=== PATIENT | female | born 1970 | race Hispanic/Latino ===

== ENCOUNTER 2021-09-30 21:17 | Emergency (ER) | payer SELFPAY ==
[~2021-09-30] VITALS: Ht 157.5 cm; Wt 76.2 kg
[2021-09-30] MEDS ORDERED: ACETAMINOPHEN 325 MG TAB PO STA (21:42)
[2021-09-30 21:56] LABS: BASOPHILS % 0.3 % (0.0-1.0); EOSINOPHILS % 0.3 % (0.0-6.0); HEMATOCRIT 31.4 % (34.2-44.1); HEMOGLOBIN 9.7 g/dL (12.0-16.0); LYMPHOCYTES # (AUTO) 0.3 (1.0-3.2); LYMPHOCYTES % 4.8 % (18.0-39.1); MEAN CORPUSCULAR HEMOGLOBIN 22.9 pg (28-32); MEAN CORPUSCULAR HGB CONC 30.9 g/dL (31-35); MEAN CORPUSCULAR VOLUME 74.2 fL (81-99); MONOCYTES # (AUTO) 0.1 (0.2-0.8); MONOCYTES % 1.8 % (4.4-11.3); NEUTROPHILS # (AUTO) 5.8 (2.1-6.9); NEUTROPHILS % 92.6 % (38.7-80.0); PLATELET COUNT 298 x10e3/uL (140-360); RED BLOOD COUNT 4.23 x10e6/uL (3.6-5.1); RED CELL DISTRIBUTION WIDTH 17.9 % (11.7-14.4)
[2021-09-30 22:12] LABS: B-TYPE NATRIURETIC PEPTIDE2 39.5 pg/mL (0-100)
[2021-09-30 22:13] LABS: ALANINE AMINOTRANSFERASE 12 IU/L (0-55); ALBUMIN 3.1 g/dL (3.5-5.0); ALBUMIN/GLOBULIN RATIO 0.8 (0.8-2.0); ALKALINE PHOSPHATASE 82 IU/L (40-150); BLOOD UREA NITROGEN 8 mg/dL (7-26); BUN/CREATININE RATIO 7 (6-25); CALCIUM 8.7 mg/dL (8.4-10.2); CARBON DIOXIDE 21 mmol/L (22-29); CHLORIDE 101 mmol/L (98-107); CREATINE KINASE 44 IU/L (29-168); CREATININE, SERUM 1.21 mg/dL (0.57-1.11); SODIUM 135 mmol/L (136-145)
[2021-09-30 22:15] LABS: GLUCOSE 682 mg/dL (74-118)
[2021-09-30] MEDS ORDERED: SODIUM CHLORIDE 0.9% 1000ML 1,000 ML IV STA (22:16)
[2021-09-30] MEDS ORDERED: INSULIN REGULAR, HUMAN 100 UNIT/1 ML IV STA (22:16)
[2021-09-30 23:00] LABS: CLARITY,URINE SL CLOUDY (CLEAR); COLOR,URINE YELLOW (YELLOW); KETONES,URINE TRACE (NEGATIVE); LEUKOCYTE ESTERASE ,URINE SMALL (NEGATIVE); NITRITE,URINE NEGATIVE (NEGATIVE); PROTEIN,URINE DIPSTICK TRACE (NEGATIVE); URINE UROBILINOGEN 0.2 mg/dL (0.2 - 1)
[2021-09-30 23:05] LABS: BACTERIA,URINE MODERATE /HPF; EPITHELIAL CELLS,URINE FEW /LPF; RBC,URINE 0-5 /HPF (0-5)
[2021-10-01] MEDS ORDERED: INSULIN REGULAR, HUMAN 100 UNIT/1 ML IV STA (01:02)
[2021-10-01] MEDS ORDERED: SODIUM CHLORIDE 0.9% 1000ML 1,000 ML IV STA (01:02)
[2021-10-01] MEDS ORDERED: AUGMENTIN 500-1 EACH PO (03:18)
[2021-10-01 04:20] VITALS: BP 108/63
== END 2021-10-01 03:24 | disposition home or self-care (01) ==
LOC: ER 21:21
DX: A41.9 Sepsis, unspecified organism (principal); R73.9 Hyperglycemia, unspecified; N39.0 Urinary tract infection, site not specified; Z88.6 Allergy status to analgesic agent
CPT/HCPCS: 36415; 71045; 80053; 81001; 82550; 82553; 82948; 83605; 83880; 84484; 85025; 87040; 87071; 87205; 99284; J2543; J7030 ×2; U0002; 93005

== ENCOUNTER 2021-10-21 17:43 | Inpatient (IN) | payer SELFPAY ==
[~2021-10-21] VITALS: Ht 160 cm; Wt 56.3 kg
[~2021-10-21 17:43] MED LIST: AUGMENTIN 500-1 EACH PO
[2021-10-21] MEDS ORDERED: SODIUM CHLORIDE 0.9% 1000ML 1,000 ML IV STA (17:46)
[2021-10-21] MEDS ORDERED: FAMOTIDINE 20 MG/2 ML VIAL IV STA (17:57)
[2021-10-21] MEDS ORDERED: LACTATED RINGER'S 1,000 ML INJ ONE (18:00)
[2021-10-21 18:26] LABS: BASOPHILS % 0.3 % (0.0-1.0); HEMATOCRIT 37.7 % (34.2-44.1); HEMOGLOBIN 11.5 g/dL (12.0-16.0); LYMPHOCYTES % 6.8 % (18.0-39.1); MEAN CORPUSCULAR HEMOGLOBIN 23.3 pg (28-32); MEAN CORPUSCULAR HGB CONC 30.5 g/dL (31-35); MEAN CORPUSCULAR VOLUME 76.5 fL (81-99); MONOCYTES # (AUTO) 0.6 (0.2-0.8); MONOCYTES % 3.8 % (4.4-11.3); NEUTROPHILS # (AUTO) 13.2 (2.1-6.9); NEUTROPHILS % 88.6 % (38.7-80.0); PLATELET COUNT 370 x10e3/uL (140-360); RED BLOOD COUNT 4.93 x10e6/uL (3.6-5.1); RED CELL DISTRIBUTION WIDTH 18.5 % (11.7-14.4)
[2021-10-21 18:40] LABS: ALBUMIN 3.1 g/dL (3.5-5.0); ALBUMIN/GLOBULIN RATIO 0.5 (0.8-2.0); ANION GAP 26.3 mmol/L (8-16); CALCIUM 9.7 mg/dL (8.4-10.2); CREATININE, SERUM 1.24 mg/dL (0.57-1.11); POTASSIUM 4.3 mmol/L (3.5-5.1)
[2021-10-21] MEDS: ONDANSETRON HCL INJ 2MG/ML 2ML 2 MG/ML VIAL IV PRN (18:49)
[2021-10-21] MEDS: DEXTROSE 5%/0.45% SOD CHL 1,000 ML IV SCH (19:00)
[2021-10-21] MEDS ORDERED: INSULIN REGULAR, HUMAN 100 UNIT/1 ML IV ONE (19:00)
[2021-10-21] MEDS ORDERED: POTASSIUM CHLORIDE 20MEQ/100ML 200 ML IV PRN (19:00)
[2021-10-21] MEDS ORDERED: INSULIN REGULAR, HUMAN 3ML VL 100 UNIT in SODIUM CHLORIDE 0.9% 100 ML IV SCH ×2 (19:00)
[2021-10-21] MEDS ORDERED: MAGNESIUM SULF 1GRAM/DEXTROSE 100 ML IV PRN (19:00)
[2021-10-21 19:03] LABS: CLARITY,URINE HAZY (CLEAR); COLOR,URINE YELLOW (YELLOW); LEUKOCYTE ESTERASE ,URINE NEGATIVE (NEGATIVE); NITRITE,URINE POSITIVE (NEGATIVE)
[2021-10-21 19:04] LABS: KETONES,URINE >=160 (NEGATIVE); PROTEIN,URINE DIPSTICK >=300 (NEGATIVE); URINE UROBILINOGEN 0.2 mg/dL (0.2 - 1)
[2021-10-21 19:06] LABS: WBC,URINE (MAN) >50 /HPF (0-5)
[2021-10-21 19:07] LABS: AMORPHOUS SEDIMENT,URINE FEW (FEW); BACTERIA,URINE MANY /HPF; EPITHELIAL CELLS,URINE FEW /LPF; MUCUS,URINE MODERATE (RARE)
[2021-10-21] MEDS ORDERED: Morphine 2mg Syringe 2 MG/ML SYR IV PRN (19:15)
[2021-10-21] MEDS ORDERED: ONDANSETRON HCL INJ 2MG/ML 2ML 2 MG/ML VIAL IV PRN (19:15)
[2021-10-21 19:16] LABS: ABG HCO3 17 mmol/L (22-26); ABG PCO2 28 mmHg (35-45); ABG PH 7.39 (7.35-7.45); ABG PO2 91 mmHg (80-105); ABG TCO2 18
[2021-10-21] MEDS ORDERED: HYDRALAZINE HCL 20 MG/ML VIAL IV PRN (20:00)
[2021-10-21] MEDS: SODIUM CHLORIDE 0.9% 1000ML 1,000 ML IV SCH ×2 (20:45→23:00)
[2021-10-21] MEDS: ACETAMINOPHEN 325 MG TAB PO PRN (20:45)
[2021-10-21 21:07] LABS: CALCIUM 8.6 mg/dL (8.4-10.2); CREATININE, SERUM 1.04 mg/dL (0.57-1.11); MAGNESIUM 1.6 MG/DL (1.3-2.1)
[2021-10-21 22:15] VITALS: BP 101/56
[2021-10-21 22:30] VITALS: BP 101/56
[2021-10-21 23:00] VITALS: BP 91/52
[2021-10-21 23:29] VITALS: BP 91/52
[2021-10-21 23:31] LABS: ANION GAP 16.2 mmol/L (8-16); CALCIUM 8.4 mg/dL (8.4-10.2); CREATININE, SERUM 1.03 mg/dL (0.57-1.11); MAGNESIUM 1.9 MG/DL (1.3-2.1); POTASSIUM 3.2 mmol/L (3.5-5.1)
[2021-10-22] VITALS (25 sets, daily range): BP systolic 94–180; BP diastolic 55–139
[2021-10-22] MEDS: DEXTROSE 5%/0.45% SOD CHL 1,000 ML IV SCH (01:13)
[2021-10-22] MEDS: SODIUM CHLORIDE 0.9% 1000ML 1,000 ML IV SCH ×2 (03:00→05:31)
[2021-10-22 04:04] LABS: BASOPHILS % 0.1 % (0.0-1.0); HEMATOCRIT 29.3 % (34.2-44.1); HEMOGLOBIN 9.1 g/dL (12.0-16.0); LYMPHOCYTES # (AUTO) 1.6 (1.0-3.2); LYMPHOCYTES % 11.1 % (18.0-39.1); MEAN CORPUSCULAR HEMOGLOBIN 23.6 pg (28-32); MEAN CORPUSCULAR HGB CONC 31.1 g/dL (31-35); MEAN CORPUSCULAR VOLUME 75.9 fL (81-99); MONOCYTES # (AUTO) 1.3 (0.2-0.8); MONOCYTES % 9.1 % (4.4-11.3); NEUTROPHILS # (AUTO) 11.4 (2.1-6.9); NEUTROPHILS % 79.4 % (38.7-80.0); PLATELET COUNT 280 x10e3/uL (140-360); RED BLOOD COUNT 3.86 x10e6/uL (3.6-5.1); RED CELL DISTRIBUTION WIDTH 18.6 % (11.7-14.4)
[2021-10-22 04:23] LABS: ANION GAP 11.9 mmol/L (8-16); CALCIUM 8.4 mg/dL (8.4-10.2); CREATININE, SERUM 0.83 mg/dL (0.57-1.11); MAGNESIUM 1.6 MG/DL (1.3-2.1)
[2021-10-22 04:26] LABS: POTASSIUM 2.9 mmol/L (3.5-5.1)
[2021-10-22] MEDS ORDERED: POTASSIUM CHLORIDE 20MEQ/100ML 200 ML ONE (04:42)
[2021-10-22] MEDS ORDERED: DEXTROSE 50% SYRINGE 50 ML IV PRN (05:45)
[2021-10-22] MEDS ORDERED: CALCIUM CARBONATE 500 MG CHEWABLE TABS PO PRN (07:00)
[2021-10-22] MEDS: INSULIN REGULAR, HUMAN 100 UNIT/1 ML SQ SCH ×4 (07:26→21:02)
[2021-10-22] MEDS: ONDANSETRON HCL INJ 2MG/ML 2ML 2 MG/ML VIAL IV PRN ×2 (08:27→20:41)
[2021-10-22] MEDS: ACETAMINOPHEN 325 MG TAB PO PRN ×2 (08:35→22:03)
[2021-10-22 12:19] LABS: ANION GAP 16.2 mmol/L (8-16); CALCIUM 8.2 mg/dL (8.4-10.2); CREATININE, SERUM 0.77 mg/dL (0.57-1.11); MAGNESIUM 1.5 MG/DL (1.3-2.1); POTASSIUM 4.2 mmol/L (3.5-5.1)
[2021-10-22 15:59] LABS: CALCIUM 8.1 mg/dL (8.4-10.2); CREATININE, SERUM 0.83 mg/dL (0.57-1.11); MAGNESIUM 1.5 MG/DL (1.3-2.1)
[2021-10-22 19:25] LABS: CALCIUM 8.1 mg/dL (8.4-10.2); CREATININE, SERUM 0.84 mg/dL (0.57-1.11); MAGNESIUM 1.7 MG/DL (1.3-2.1)
[2021-10-23] VITALS (14 sets, daily range): BP systolic 104–148; BP diastolic 59–83
[2021-10-23] MEDS: SODIUM CHLORIDE 0.9% 1000ML 1,000 ML IV SCH ×2 (00:23→14:31)
[2021-10-23] MEDS: INSULIN REGULAR, HUMAN 100 UNIT/1 ML SQ SCH ×4 (07:48→21:00)
[2021-10-23 13:20] LABS: BASOPHILS % 0.4 % (0.0-1.0); EOSINOPHILS % 0.1 % (0.0-6.0); HEMATOCRIT 32.6 % (34.2-44.1); HEMOGLOBIN 9.9 g/dL (12.0-16.0); LYMPHOCYTES % 9.2 % (18.0-39.1); MEAN CORPUSCULAR HEMOGLOBIN 23.3 pg (28-32); MEAN CORPUSCULAR HGB CONC 30.4 g/dL (31-35); MEAN CORPUSCULAR VOLUME 76.7 fL (81-99); MONOCYTES # (AUTO) 0.7 (0.2-0.8); MONOCYTES % 6.2 % (4.4-11.3); NEUTROPHILS % 83.5 % (38.7-80.0); PLATELET COUNT 232 x10e3/uL (140-360); RED BLOOD COUNT 4.25 x10e6/uL (3.6-5.1); RED CELL DISTRIBUTION WIDTH 18.8 % (11.7-14.4)
[2021-10-23 13:41] LABS: ANION GAP 15.3 mmol/L (8-16); CALCIUM 8.2 mg/dL (8.4-10.2); CREATININE, SERUM 0.78 mg/dL (0.57-1.11); POTASSIUM 3.3 mmol/L (3.5-5.1)
[2021-10-23] MEDS: ONDANSETRON HCL INJ 2MG/ML 2ML 2 MG/ML VIAL IV PRN (14:31)
[2021-10-23] MEDS: HEPARIN SOD (PORCINE) 5,000 UNIT/ML VIAL SC SCH (21:00)
[2021-10-24] VITALS (9 sets, daily range): BP systolic 121–161; BP diastolic 66–86
[2021-10-24] MEDS: SODIUM CHLORIDE 0.9% 1000ML 1,000 ML IV SCH ×2 (00:52→09:01)
[2021-10-24] MEDS: BENZONATATE 100 MG CAP PO PRN ×2 (00:52→21:08)
[2021-10-24] MEDS: INSULIN REGULAR, HUMAN 100 UNIT/1 ML SQ SCH ×4 (07:30→20:58)
[2021-10-24] MEDS: HEPARIN SOD (PORCINE) 5,000 UNIT/ML VIAL SC SCH ×2 (08:52→20:57)
[2021-10-25] VITALS: BP 132/70
[2021-10-25] MEDS: SODIUM CHLORIDE 0.9% 1000ML 1,000 ML IV SCH (02:31)
[2021-10-25 04:15] VITALS: BP 131/71
[2021-10-25 05:35] LABS: BASOPHILS % 0.1 % (0.0-1.0); EOSINOPHILS # (AUTO) 0.1 (0.0-0.4); EOSINOPHILS % 1.4 % (0.0-6.0); HEMATOCRIT 28.4 % (34.2-44.1); HEMOGLOBIN 8.6 g/dL (12.0-16.0); LYMPHOCYTES # (AUTO) 1.7 (1.0-3.2); LYMPHOCYTES % 23.9 % (18.0-39.1); MEAN CORPUSCULAR HEMOGLOBIN 23.2 pg (28-32); MEAN CORPUSCULAR HGB CONC 30.3 g/dL (31-35); MEAN CORPUSCULAR VOLUME 76.5 fL (81-99); MONOCYTES # (AUTO) 0.8 (0.2-0.8); MONOCYTES % 11.4 % (4.4-11.3); NEUTROPHILS # (AUTO) 4.5 (2.1-6.9); NEUTROPHILS % 62.8 % (38.7-80.0); PLATELET COUNT 232 x10e3/uL (140-360); RED BLOOD COUNT 3.71 x10e6/uL (3.6-5.1); RED CELL DISTRIBUTION WIDTH 18.5 % (11.7-14.4)
[2021-10-25 05:53] LABS: ANION GAP 17.2 mmol/L (8-16); BLOOD UREA NITROGEN < 5 mg/dL (7-26); CALCIUM 8.2 mg/dL (8.4-10.2); CARBON DIOXIDE 22 mmol/L (22-29); CHLORIDE 104 mmol/L (98-107); GLUCOSE 268 mg/dL (74-118); POTASSIUM 3.2 mmol/L (3.5-5.1); SODIUM 140 mmol/L (136-145)
[2021-10-25 05:54] LABS: BUN/CREATININE RATIO 7 (6-25)
[2021-10-25 08:14] VITALS: BP 142/75
[2021-10-25] MEDS: INSULIN REGULAR, HUMAN 100 UNIT/1 ML SQ SCH ×2 (09:03→11:46)
[2021-10-25] MEDS: HEPARIN SOD (PORCINE) 5,000 UNIT/ML VIAL SC SCH (09:03)
[2021-10-25] MEDS ORDERED: ONDANSETRON HCL 4 MG ORAL DISINTEGRATING TAB PO PRN (09:30)
[2021-10-25] MEDS ORDERED: CIPRO500 MG PO ×2 (10:23→15:53)
[2021-10-25] MEDS ORDERED: METFORMIN HCL850 MG PO ×2 (10:23→15:53)
[2021-10-25 11:58] VITALS: BP 140/79
[2021-10-25 16:27] VITALS: BP 146/94
[2021-10-26] MEDS ORDERED: PANTOPRAZOLE SOD 40 MG TABEC PO SCH (07:30)
== END 2021-10-25 17:57 | disposition home or self-care (01) | DRG 871 ==
LOC: ER 17:47 → ERHOLD 19:31 → ICU 22:02 → MED/SURG2 10-23 23:51
PROVIDERS: ADMIT Internal Medicine; ATTEND Internal Medicine
DX: A41.51 Sepsis due to Escherichia coli [E. coli] (principal); E11.10 Type 2 diabetes mellitus with ketoacidosis without coma; N39.0 Urinary tract infection, site not specified; Z16.12 Extended spectrum beta lactamase (ESBL) resistance; E87.6 Hypokalemia; R05.9 Cough, unspecified; B96.81 Helicobacter pylori [H. pylori] as the cause of diseases classified elsewhere; Z90.49 Acquired absence of other specified parts of digestive tract; Z83.3 Family history of diabetes mellitus; Z82.49 Family history of ischemic heart disease and other diseases of the circulatory system; Z20.822 Contact with and (suspected) exposure to COVID-19; Z79.84 Long term (current) use of oral hypoglycemic drugs
CPT/HCPCS: 36415; 36600; 71045; 74018; 80048; 80053; 81001; 82805; 82948; 83605; 83690; 83735; 84702; 85025; 87040; 87071; 87086; 87186; 87205; 93005; 94799; 96361; 96372; 99284; J0696; J1644; J1817; J2405; J2543; J3480; J7030; J7050; J7121

== ENCOUNTER 2021-12-01 17:38 | Inpatient (IN) | payer SELFPAY ==
[~2021-12-01] VITALS: Ht 160 cm; Wt 56.2 kg
[~2021-12-01 17:38] MED LIST changes: +CIPRO500 MG PO; +METFORMIN HCL850 MG PO
[2021-12-01] MEDS ORDERED: ONDANSETRON HCL INJ 2MG/ML 2ML 2 MG/ML VIAL IV STA (17:50)
[2021-12-01] MEDS ORDERED: SODIUM CHLORIDE 0.9% 1000ML 1,000 ML IV ONE (18:00)
[2021-12-01 18:07] LABS: BASOPHILS % 0.2 % (0.0-1.0); EOSINOPHILS # (AUTO) 0.1 (0.0-0.4); EOSINOPHILS % 0.7 % (0.0-6.0); HEMATOCRIT 34.1 % (34.2-44.1); HEMOGLOBIN 10.6 g/dL (12.0-16.0); LYMPHOCYTES # (AUTO) 1.1 (1.0-3.2); LYMPHOCYTES % 8.3 % (18.0-39.1); MEAN CORPUSCULAR HEMOGLOBIN 24.1 pg (28-32); MEAN CORPUSCULAR HGB CONC 31.1 g/dL (31-35); MEAN CORPUSCULAR VOLUME 77.5 fL (81-99); MONOCYTES # (AUTO) 0.5 (0.2-0.8); NEUTROPHILS # (AUTO) 11.3 (2.1-6.9); NEUTROPHILS % 86.4 % (38.7-80.0); PLATELET COUNT 590 x10e3/uL (140-360)
[2021-12-01 18:26] LABS: ALBUMIN 2.9 g/dL (3.5-5.0); ALBUMIN/GLOBULIN RATIO 0.6 (0.8-2.0); ALKALINE PHOSPHATASE 122 IU/L (40-150); ANION GAP 20.2 mmol/L (8-16); BLOOD UREA NITROGEN 5 mg/dL (7-26); BUN/CREATININE RATIO 4 (6-25); CALCIUM 9.3 mg/dL (8.4-10.2); CARBON DIOXIDE 27 mmol/L (22-29); CHLORIDE 87 mmol/L (98-107); CREATINE KINASE 15 IU/L (29-168); CREATININE, SERUM 1.22 mg/dL (0.57-1.11); POTASSIUM 4.2 mmol/L (3.5-5.1); SODIUM 130 mmol/L (136-145)
[2021-12-01 18:32] LABS: ALANINE AMINOTRANSFERASE < 6 IU/L (0-55); GLUCOSE 647 mg/dL (74-118)
[2021-12-01] MEDS ORDERED: INSULIN REGULAR, HUMAN 100 UNIT/1 ML SQ ONE ×2 (18:45)
[2021-12-01 19:41] LABS: CLARITY,URINE HAZY (CLEAR); COLOR,URINE YELLOW (YELLOW); KETONES,URINE TRACE (NEGATIVE); LEUKOCYTE ESTERASE ,URINE SMALL (NEGATIVE); NITRITE,URINE NEGATIVE (NEGATIVE); PROTEIN,URINE DIPSTICK 1+ (NEGATIVE); URINE UROBILINOGEN 0.2 mg/dL (0.2 - 1)
[2021-12-01 19:48] LABS: BACTERIA,URINE MANY /HPF; EPITHELIAL CELLS,URINE MODERATE /LPF; WBC,URINE (MAN) 21-50 /HPF (0-5)
[2021-12-01] MEDS ORDERED: ONDANSETRON HCL INJ 2MG/ML 2ML 2 MG/ML VIAL IV PRN (20:15)
[2021-12-01] MEDS ORDERED: DEXTROSE 50% SYRINGE 50 ML IV PRN (20:15)
[2021-12-01] MEDS: SODIUM CHLORIDE 0.9% 1000ML 1,000 ML IV SCH (20:45)
[2021-12-01] MEDS ORDERED: ACETAMINOPHEN 325 MG TAB PO PRN (20:45)
[2021-12-01 22:20] VITALS: BP 129/78
[2021-12-01] MEDS: INSULIN REGULAR, HUMAN 100 UNIT/1 ML SQ SCH (22:48)
[2021-12-01 23:15] VITALS: BP 129/78
[2021-12-01 23:33] VITALS: BP 129/78
[2021-12-02] VITALS (8 sets, daily range): BP systolic 109–138; BP diastolic 62–80
[2021-12-02] MEDS: SODIUM CHLORIDE 0.9% 1000ML 1,000 ML IV SCH ×3 (05:25→20:14)
[2021-12-02 06:32] LABS: BASOPHILS % 0.2 % (0.0-1.0); EOSINOPHILS # (AUTO) 0.1 (0.0-0.4); EOSINOPHILS % 0.8 % (0.0-6.0); HEMATOCRIT 29.5 % (34.2-44.1); LYMPHOCYTES # (AUTO) 2.1 (1.0-3.2); LYMPHOCYTES % 15.1 % (18.0-39.1); MEAN CORPUSCULAR HGB CONC 30.5 g/dL (31-35); MEAN CORPUSCULAR VOLUME 78.7 fL (81-99); MONOCYTES # (AUTO) 0.9 (0.2-0.8); MONOCYTES % 6.5 % (4.4-11.3); NEUTROPHILS # (AUTO) 10.8 (2.1-6.9); PLATELET COUNT 532 x10e3/uL (140-360); RED BLOOD COUNT 3.75 x10e6/uL (3.6-5.1); RED CELL DISTRIBUTION WIDTH 16.3 % (11.7-14.4)
[2021-12-02 06:58] LABS: ALBUMIN 2.3 g/dL (3.5-5.0); ALBUMIN/GLOBULIN RATIO 0.5 (0.8-2.0); ALKALINE PHOSPHATASE 95 IU/L (40-150); ANION GAP 14.3 mmol/L (8-16); BLOOD UREA NITROGEN < 5 mg/dL (7-26); CALCIUM 8.3 mg/dL (8.4-10.2); CARBON DIOXIDE 27 mmol/L (22-29); CHLORIDE 99 mmol/L (98-107); CREATINE KINASE 11 IU/L (29-168); CREATININE, SERUM 0.79 mg/dL (0.57-1.11); GLUCOSE 94 mg/dL (74-118); POTASSIUM 3.3 mmol/L (3.5-5.1); SODIUM 137 mmol/L (136-145)
[2021-12-02 07:00] LABS: ALANINE AMINOTRANSFERASE < 6 IU/L (0-55); BUN/CREATININE RATIO 6 (6-25)
[2021-12-02] MEDS: INSULIN REGULAR, HUMAN 100 UNIT/1 ML SQ SCH ×4 (07:30→20:16)
[2021-12-02 07:45] LABS: CHOL/HDL RATIO 3.7 (3.0-3.6)
[2021-12-02] MEDS: METFORMIN HCL 850 MG TAB PO SCH ×2 (09:20→17:18)
[2021-12-02 14:54] LABS: ANION GAP 13.6 mmol/L (8-16); BLOOD UREA NITROGEN < 5 mg/dL (7-26); CALCIUM 8.3 mg/dL (8.4-10.2); CARBON DIOXIDE 24 mmol/L (22-29); CHLORIDE 102 mmol/L (98-107); CREATININE, SERUM 0.82 mg/dL (0.57-1.11); GLUCOSE 187 mg/dL (74-118); MAGNESIUM 1.6 MG/DL (1.3-2.1); PHOSPHORUS 2.9 MG/DL (2.3-4.7); POTASSIUM 3.6 mmol/L (3.5-5.1); SODIUM 136 mmol/L (136-145)
[2021-12-02 14:56] LABS: BUN/CREATININE RATIO 6 (6-25)
[2021-12-02 15:18] LABS: CREATINE KINASE 10 IU/L (29-168)
[2021-12-02] MEDS: ATORVASTATIN 20 MG TAB PO SCH (20:14)
[2021-12-02 22:27] LABS: CREATINE KINASE 13 IU/L (29-168)
[2021-12-03] VITALS (8 sets, daily range): BP systolic 125–148; BP diastolic 67–82
[2021-12-03] MEDS: SODIUM CHLORIDE 0.9% 1000ML 1,000 ML IV SCH ×3 (04:15→22:33)
[2021-12-03] MEDS: METFORMIN HCL 850 MG TAB PO SCH ×2 (08:50→16:32)
[2021-12-03] MEDS: INSULIN REGULAR, HUMAN 100 UNIT/1 ML SQ SCH ×4 (08:54→21:00)
[2021-12-03 12:21] LABS: BASOPHILS % 0.2 % (0.0-1.0); EOSINOPHILS # (AUTO) 0.1 (0.0-0.4); EOSINOPHILS % 1.1 % (0.0-6.0); HEMATOCRIT 28.9 % (34.2-44.1); HEMOGLOBIN 8.8 g/dL (12.0-16.0); LYMPHOCYTES # (AUTO) 1.7 (1.0-3.2); LYMPHOCYTES % 16.6 % (18.0-39.1); MEAN CORPUSCULAR HEMOGLOBIN 24.2 pg (28-32); MEAN CORPUSCULAR HGB CONC 30.4 g/dL (31-35); MEAN CORPUSCULAR VOLUME 79.6 fL (81-99); MONOCYTES # (AUTO) 0.6 (0.2-0.8); MONOCYTES % 6.2 % (4.4-11.3); NEUTROPHILS # (AUTO) 7.9 (2.1-6.9); NEUTROPHILS % 75.5 % (38.7-80.0); PLATELET COUNT 471 x10e3/uL (140-360); RED BLOOD COUNT 3.63 x10e6/uL (3.6-5.1); RED CELL DISTRIBUTION WIDTH 16.8 % (11.7-14.4)
[2021-12-03 12:40] LABS: ANION GAP 13.8 mmol/L (8-16); CALCIUM 8.4 mg/dL (8.4-10.2); CREATININE, SERUM 0.72 mg/dL (0.57-1.11); POTASSIUM 3.8 mmol/L (3.5-5.1)
[2021-12-03] MEDS: ATORVASTATIN 20 MG TAB PO SCH (20:16)
[2021-12-04] VITALS: BP 146/84
[2021-12-04 04:00] VITALS: BP 143/87
[2021-12-04] MEDS: INSULIN REGULAR, HUMAN 100 UNIT/1 ML SQ SCH (07:30)
[2021-12-04] MEDS ORDERED: CEPHALEXIN500 MG PO (07:36)
[2021-12-04] MEDS ORDERED: PANTOPRAZOLE SO40 MG PO (07:36)
[2021-12-04] MEDS ORDERED: LIPITOR20 MG PO (07:36)
[2021-12-04] MEDS: METFORMIN HCL 850 MG TAB PO SCH (08:22)
[2021-12-04 08:44] VITALS: BP 143/87
== END 2021-12-04 10:52 | disposition home or self-care (01) | DRG 638 ==
LOC: ER 17:52 → ERHOLD 20:08 → MED/SURG2 22:38 → OBSVTOIN 12-03 10:19
PROVIDERS: ADMIT Internal Medicine; ATTEND Internal Medicine
DX: E11.65 Type 2 diabetes mellitus with hyperglycemia (principal); N17.9 Acute kidney failure, unspecified; N39.0 Urinary tract infection, site not specified; Z16.12 Extended spectrum beta lactamase (ESBL) resistance; E87.6 Hypokalemia; Z90.49 Acquired absence of other specified parts of digestive tract; Z88.8 Allergy status to other drugs, medicaments and biological substances; B96.20 Unspecified Escherichia coli [E. coli] as the cause of diseases classified elsewhere; Z20.822 Contact with and (suspected) exposure to COVID-19; Z79.84 Long term (current) use of oral hypoglycemic drugs
CPT/HCPCS: 0223U; 36415; 71045; 80048; 80053; 80061; 81001; 82550; 82553; 82948; 83036; 83605; 83690; 83735; 84100; 84484; 85025; 87040; 87086; 87186; 87400; 93005; 94799; 99284; G0378; J0696; J1817; J2405; J7030

== ENCOUNTER 2021-12-27 17:36 | Inpatient (IN) | payer SELFPAY ==
[~2021-12-27] VITALS: Ht 160 cm; Wt 52.4 kg
[~2021-12-27 17:36] MED LIST changes: +CEPHALEXIN500 MG PO; +LIPITOR20 MG PO; +PANTOPRAZOLE SO40 MG PO
[2021-12-27] MEDS ORDERED: INSULIN REGULAR, HUMAN 100 UNIT/1 ML SQ ONE (18:00)
[2021-12-27] MEDS ORDERED: INSULIN REGULAR, HUMAN 100 UNIT/1 ML IV ONE (18:00)
[2021-12-27] MEDS ORDERED: SODIUM CHLORIDE 0.9% 1000ML 1,000 ML IV ONE (18:00)
[2021-12-27] MEDS ORDERED: SODIUM CHLORIDE 0.9% 1000ML 1,000 ML ONE (18:01)
[2021-12-27 18:09] LABS: BASOPHILS % 0.2 % (0.0-1.0); EOSINOPHILS % 0.1 % (0.0-6.0); HEMATOCRIT 30.3 % (34.2-44.1); LYMPHOCYTES # (AUTO) 0.9 (1.0-3.2); LYMPHOCYTES % 6.1 % (18.0-39.1); MEAN CORPUSCULAR HEMOGLOBIN 24.7 pg (28-32); MEAN CORPUSCULAR HGB CONC 29.7 g/dL (31-35); MEAN CORPUSCULAR VOLUME 83.2 fL (81-99); MONOCYTES # (AUTO) 0.7 (0.2-0.8); MONOCYTES % 5.2 % (4.4-11.3); NEUTROPHILS # (AUTO) 12.6 (2.1-6.9); NEUTROPHILS % 87.8 % (38.7-80.0); PLATELET COUNT 501 x10e3/uL (140-360); RED BLOOD COUNT 3.64 x10e6/uL (3.6-5.1); RED CELL DISTRIBUTION WIDTH 16.2 % (11.7-14.4)
[2021-12-27 18:37] LABS: ALANINE AMINOTRANSFERASE 6 IU/L (0-55); ALBUMIN 2.2 g/dL (3.5-5.0); ALBUMIN/GLOBULIN RATIO 0.4 (0.8-2.0); ALKALINE PHOSPHATASE 120 IU/L (40-150); ANION GAP 30.2 mmol/L (8-16); BLOOD UREA NITROGEN 24 mg/dL (7-26); BUN/CREATININE RATIO 17 (6-25); CALCIUM 7.7 mg/dL (8.4-10.2); CHLORIDE 104 mmol/L (98-107); CREATINE KINASE 11 IU/L (29-168); CREATININE, SERUM 1.43 mg/dL (0.57-1.11); POTASSIUM 4.2 mmol/L (3.5-5.1); SODIUM 138 mmol/L (136-145)
[2021-12-27 18:41] LABS: CARBON DIOXIDE 8 mmol/L (22-29); GLUCOSE 677 mg/dL (74-118)
[2021-12-27] MEDS ORDERED: POTASSIUM CHLORIDE 20MEQ/100ML 200 ML IV PRN (18:45)
[2021-12-27] MEDS ORDERED: MAGNESIUM SULF 1GRAM/DEXTROSE 100 ML IV PRN (18:45)
[2021-12-27] MEDS: DEXTROSE 5%/0.45% SOD CHL 1,000 ML IV SCH (18:45)
[2021-12-27] MEDS: SODIUM CHLORIDE 0.9% 1000ML 1,000 ML IV SCH ×2 (18:59→22:18)
[2021-12-27] MEDS: INSULIN REGULAR, HUMAN 3ML VL 100 UNIT in SODIUM CHLORIDE 0.9% 99 ML IV SCH ×2 (18:59)
[2021-12-27] MEDS: ATORVASTATIN 40 MG TAB PO SCH (21:12)
[2021-12-27 22:16] LABS: ANION GAP 22.2 mmol/L (8-16); CALCIUM 8.9 mg/dL (8.4-10.2); CREATININE, SERUM 1.7 mg/dL (0.57-1.11); MAGNESIUM 1.8 MG/DL (1.3-2.1); POTASSIUM 3.2 mmol/L (3.5-5.1)
[2021-12-27 22:33] LABS: CLARITY,URINE SL CLOUDY (CLEAR); COLOR,URINE YELLOW (YELLOW); KETONES,URINE >=160 (NEGATIVE); LEUKOCYTE ESTERASE ,URINE NEGATIVE (NEGATIVE); NITRITE,URINE NEGATIVE (NEGATIVE); PROTEIN,URINE DIPSTICK 2+ (NEGATIVE); URINE UROBILINOGEN 0.2 mg/dL (0.2 - 1)
[2021-12-27 22:42] LABS: BACTERIA,URINE FEW /HPF; EPITHELIAL CELLS,URINE FEW /LPF
[2021-12-27 23:00] VITALS: BP 157/82
[2021-12-27] MEDS: ONDANSETRON HCL INJ 2MG/ML 2ML 2 MG/ML VIAL ONE ×2 (23:02→23:05)
[2021-12-27] MEDS: ONDANSETRON HCL INJ 2MG/ML 2ML 2 MG/ML VIAL IV PRN (23:05)
[2021-12-27 23:23] VITALS: BP 156/86
[2021-12-27 23:30] VITALS: BP 152/86
[2021-12-27] MEDS ORDERED: NITROFURANTOIN100 MG PO (23:55)
[2021-12-28] VITALS (24 sets, daily range): BP systolic 118–171; BP diastolic 63–88
[2021-12-28] MEDS ORDERED: POTASSIUM CHLORIDE 20MEQ/100ML 100 ML INJ PRN
[2021-12-28] MEDS: SODIUM CHLORIDE 0.9% 1000ML 1,000 ML IV SCH ×3 (02:45→10:45)
[2021-12-28 02:46] LABS: ANION GAP 16.4 mmol/L (8-16); CREATININE, SERUM 1.38 mg/dL (0.57-1.11); MAGNESIUM 1.7 MG/DL (1.3-2.1); POTASSIUM 3.4 mmol/L (3.5-5.1)
[2021-12-28] MEDS: ONDANSETRON HCL INJ 2MG/ML 2ML 2 MG/ML VIAL IV PRN ×3 (03:02→16:50)
[2021-12-28] MEDS: INSULIN REGULAR, HUMAN 3ML VL 100 UNIT in SODIUM CHLORIDE 0.9% 99 ML IV SCH ×4 (03:15→12:36)
[2021-12-28] MEDS: DEXTROSE 5%/0.45% SOD CHL 1,000 ML IV SCH ×4 (03:16→22:58)
[2021-12-28 07:05] LABS: ANION GAP 15.3 mmol/L (8-16); CALCIUM 8.7 mg/dL (8.4-10.2); CREATININE, SERUM 1.13 mg/dL (0.57-1.11); MAGNESIUM 1.7 MG/DL (1.3-2.1); POTASSIUM 3.3 mmol/L (3.5-5.1)
[2021-12-28] MEDS ORDERED: MAGNESIUM SULF 1GRAM/DEXTROSE 100 ML IV PRN (07:45)
[2021-12-28] MEDS ORDERED: POTASSIUM CHLORIDE 20MEQ/100ML 200 ML IV PRN (07:45)
[2021-12-28] MEDS: PANTOPRAZOLE SOD 40 MG TABEC PO SCH (07:58)
[2021-12-28] MEDS: POTASSIUM CHLORIDE 20MEQ/100ML 100 ML IV PRN ×2 (07:59→15:30)
[2021-12-28 11:00] LABS: ANION GAP 14.5 mmol/L (8-16); CALCIUM 8.5 mg/dL (8.4-10.2); CREATININE, SERUM 1.05 mg/dL (0.57-1.11); MAGNESIUM 1.8 MG/DL (1.3-2.1); POTASSIUM 3.5 mmol/L (3.5-5.1)
[2021-12-28 14:39] LABS: FREE T4 (FREE THYROXINE) 1.14 ng/dL (0.8-1.8); THYROID STIMULATING HORMONE 0.962 uIU/mL (0.350-4.940)
[2021-12-28] MEDS ORDERED: DEXTROSE 50% SYRINGE 50 ML IV PRN (14:45)
[2021-12-28 15:06] LABS: ANION GAP 13.3 mmol/L (8-16); CALCIUM 8.2 mg/dL (8.4-10.2); CREATININE, SERUM 0.97 mg/dL (0.57-1.11); MAGNESIUM 1.8 MG/DL (1.3-2.1); POTASSIUM 3.3 mmol/L (3.5-5.1)
[2021-12-28] MEDS: HYDRALAZINE HCL 20 MG/ML VIAL IV PRN (18:13)
[2021-12-28] MEDS ORDERED: INSULIN GLARGINE 100 UNITS/ML VIAL SQ SCH (21:00)
[2021-12-28] MEDS: ATORVASTATIN 40 MG TAB PO SCH (22:42)
[2021-12-29] VITALS (28 sets, daily range): BP systolic 96–176; BP diastolic 59–108
[2021-12-29] MEDS: ONDANSETRON HCL INJ 2MG/ML 2ML 2 MG/ML VIAL IV PRN ×2 (02:13→12:16)
[2021-12-29] MEDS: INSULIN REGULAR, HUMAN 3ML VL 100 UNIT in SODIUM CHLORIDE 0.9% 100 ML IV SCH ×2 (08:24)
[2021-12-29] MEDS: PANTOPRAZOLE SOD 40 MG TABEC PO SCH (09:06)
[2021-12-29 12:21] LABS: CLARITY,URINE CLOUDY (CLEAR); COLOR,URINE YELLOW (YELLOW); KETONES,URINE NEGATIVE (NEGATIVE); LEUKOCYTE ESTERASE ,URINE MODERATE (NEGATIVE); NITRITE,URINE POSITIVE (NEGATIVE); PROTEIN,URINE DIPSTICK 1+ (NEGATIVE); URINE UROBILINOGEN 0.2 mg/dL (0.2 - 1)
[2021-12-29 12:32] LABS: BACTERIA,URINE MANY /HPF; EPITHELIAL CELLS,URINE FEW /LPF; WBC,URINE (MAN) >50 /HPF (0-5)
[2021-12-29] MEDS: ACETAMINOPHEN 325 MG TAB PO PRN ×2 (12:56→20:58)
[2021-12-29] MEDS: LABETALOL HCL 5 MG/ML 20ML VIAL IV PRN ×2 (12:57→23:42)
[2021-12-29] MEDS ORDERED: SODIUM CHLORIDE 0.9% IV SCH (13:00)
[2021-12-29] MEDS: DEXTROSE 5%/0.45% SOD CHL 1,000 ML IV SCH (14:25)
[2021-12-29] MEDS ORDERED: INSULIN LISPRO 100 UNIT/1 ML 3ML VIAL SQ SCH ×2 (16:30)
[2021-12-29 19:03] LABS: ALBUMIN 1.9 g/dL (3.5-5.0); ALBUMIN/GLOBULIN RATIO 0.5 (0.8-2.0); ANION GAP 14.7 mmol/L (8-16); CALCIUM 7.8 mg/dL (8.4-10.2); CREATININE, SERUM 0.84 mg/dL (0.57-1.11); POTASSIUM 3.7 mmol/L (3.5-5.1)
[2021-12-29] MEDS: ATORVASTATIN 40 MG TAB PO SCH (20:57)
[2021-12-29] MEDS: INSULIN GLARGINE 100 UNITS/ML VIAL SQ SCH (21:07)
[2021-12-30] VITALS (52 sets, daily range): BP systolic 107–232; BP diastolic 62–108
[2021-12-30] MEDS: DEXTROSE 5%/0.45% SOD CHL 1,000 ML IV SCH ×3 (04:31→17:59)
[2021-12-30] MEDS: ONDANSETRON HCL INJ 2MG/ML 2ML 2 MG/ML VIAL IV PRN ×3 (06:24→23:27)
[2021-12-30] MEDS: LABETALOL HCL 5 MG/ML 20ML VIAL IV PRN ×2 (06:36→15:09)
[2021-12-30 07:12] LABS: BASOPHILS # (AUTO) 0.1 (0.0-0.1); BASOPHILS % 0.4 % (0.0-1.0); EOSINOPHILS # (AUTO) 0.1 (0.0-0.4); EOSINOPHILS % 0.7 % (0.0-6.0); HEMATOCRIT 28.6 % (34.2-44.1); LYMPHOCYTES # (AUTO) 1.2 (1.0-3.2); LYMPHOCYTES % 9.5 % (18.0-39.1); MEAN CORPUSCULAR HEMOGLOBIN 24.3 pg (28-32); MEAN CORPUSCULAR HGB CONC 31.5 g/dL (31-35); MEAN CORPUSCULAR VOLUME 77.3 fL (81-99); MONOCYTES # (AUTO) 0.8 (0.2-0.8); MONOCYTES % 6.7 % (4.4-11.3); NEUTROPHILS # (AUTO) 10.1 (2.1-6.9); NEUTROPHILS % 81.8 % (38.7-80.0); PLATELET COUNT 466 x10e3/uL (140-360); RED CELL DISTRIBUTION WIDTH 16.6 % (11.7-14.4)
[2021-12-30 07:51] LABS: ALBUMIN 1.8 g/dL (3.5-5.0); ALBUMIN/GLOBULIN RATIO 0.4 (0.8-2.0); ANION GAP 13.3 mmol/L (8-16); CALCIUM 8.4 mg/dL (8.4-10.2); CREATININE, SERUM 0.73 mg/dL (0.57-1.11); POTASSIUM 3.3 mmol/L (3.5-5.1)
[2021-12-30] MEDS: PANTOPRAZOLE SOD 40 MG TABEC PO SCH (10:23)
[2021-12-30] MEDS ORDERED: LOPERAMIDE HCL 2 MG CAP PO ONE (11:00)
[2021-12-30] MEDS ORDERED: POTASSIUM CHLORIDE 10MEQ EA PO ONE (11:00)
[2021-12-30] MEDS: INSULIN REGULAR, HUMAN 3ML VL 100 UNIT in SODIUM CHLORIDE 0.9% 100 ML IV SCH ×4 (12:03→17:42)
[2021-12-30] MEDS ORDERED: IOPAMIDOL 370 MG/ML 100 ML INFUS..BTL INJ ONE (14:21)
[2021-12-30] MEDS: METRONIDAZOLE 500 MG TAB PO SCH ×2 (14:59→21:55)
[2021-12-30] MEDS ORDERED: INSULIN LISPRO 100 UNIT/1 ML 3ML VIAL SQ SCH ×2 (16:30)
[2021-12-30] MEDS ORDERED: INSULIN LISPRO 100 UNIT/1 ML 3ML VIAL SQ ONE (16:30)
[2021-12-30] MEDS: HYDRALAZINE HCL 20 MG/ML VIAL IV PRN (17:58)
[2021-12-30] MEDS: INSULIN GLARGINE 100 UNITS/ML VIAL SQ SCH (21:00)
[2021-12-30] MEDS: ATORVASTATIN 40 MG TAB PO SCH (21:55)
[2021-12-31] VITALS (27 sets, daily range): BP systolic 106–174; BP diastolic 54–80
[2021-12-31] MEDS: INSULIN REGULAR, HUMAN 3ML VL 100 UNIT in SODIUM CHLORIDE 0.9% 100 ML IV SCH ×6 (07:45→15:53)
[2021-12-31] MEDS: PANTOPRAZOLE SOD 40 MG TABEC PO SCH (08:23)
[2021-12-31] MEDS: METRONIDAZOLE 500 MG TAB PO SCH ×3 (08:23→20:56)
[2021-12-31] MEDS: DEXTROSE 5%/0.45% SOD CHL 1,000 ML IV SCH ×2 (08:24→22:34)
[2021-12-31 09:10] LABS: BASOPHILS % 0.3 % (0.0-1.0); EOSINOPHILS # (AUTO) 0.1 (0.0-0.4); EOSINOPHILS % 0.8 % (0.0-6.0); HEMATOCRIT 25.5 % (34.2-44.1); HEMOGLOBIN 8.1 g/dL (12.0-16.0); LYMPHOCYTES # (AUTO) 1.3 (1.0-3.2); LYMPHOCYTES % 9.9 % (18.0-39.1); MEAN CORPUSCULAR HEMOGLOBIN 24.5 pg (28-32); MEAN CORPUSCULAR HGB CONC 31.8 g/dL (31-35); MEAN CORPUSCULAR VOLUME 77.3 fL (81-99); MONOCYTES # (AUTO) 0.9 (0.2-0.8); MONOCYTES % 7.1 % (4.4-11.3); NEUTROPHILS # (AUTO) 10.8 (2.1-6.9); NEUTROPHILS % 80.9 % (38.7-80.0); PLATELET COUNT 417 x10e3/uL (140-360); RED CELL DISTRIBUTION WIDTH 16.8 % (11.7-14.4)
[2021-12-31 09:25] LABS: ALBUMIN 1.7 g/dL (3.5-5.0); ALBUMIN/GLOBULIN RATIO 0.4 (0.8-2.0); ANION GAP 14.9 mmol/L (8-16); CALCIUM 8.1 mg/dL (8.4-10.2); CREATININE, SERUM 0.92 mg/dL (0.57-1.11); POTASSIUM 3.9 mmol/L (3.5-5.1)
[2021-12-31] MEDS: ACETAMINOPHEN 325 MG TAB PO PRN ×2 (13:26→21:11)
[2021-12-31 15:38] LABS: ALBUMIN 1.8 g/dL (3.5-5.0); ALBUMIN/GLOBULIN RATIO 0.4 (0.8-2.0); CALCIUM 8.3 mg/dL (8.4-10.2); CREATININE, SERUM 0.86 mg/dL (0.57-1.11)
[2021-12-31] MEDS ORDERED: INSULIN LISPRO 100 UNIT/1 ML 3ML VIAL SQ SCH (17:30)
[2021-12-31] MEDS ORDERED: DEXTROSE 50% SYRINGE 50 ML IV PRN (17:30)
[2021-12-31] MEDS: ATORVASTATIN 40 MG TAB PO SCH (20:56)
[2021-12-31] MEDS ORDERED: INSULIN GLARGINE 100 UNITS/ML VIAL SQ SCH (21:00)
[2021-12-31] MEDS: INSULIN LISPRO 100 UNIT/1 ML 3ML VIAL SQ SCH (21:05)
[2022-01-01] VITALS (15 sets, daily range): BP systolic 94–181; BP diastolic 60–80
[2022-01-01] MEDS: ONDANSETRON HCL INJ 2MG/ML 2ML 2 MG/ML VIAL IV PRN ×2 (04:19→18:37)
[2022-01-01] MEDS: LABETALOL HCL 5 MG/ML 20ML VIAL IV PRN (05:04)
[2022-01-01] MEDS: METRONIDAZOLE 500 MG TAB PO SCH (08:14)
[2022-01-01] MEDS: PANTOPRAZOLE SOD 40 MG TABEC PO SCH (08:14)
[2022-01-01] MEDS: ACETAMINOPHEN 325 MG TAB PO PRN (08:14)
[2022-01-01] MEDS: INSULIN LISPRO 100 UNIT/1 ML 3ML VIAL SQ SCH ×7 (08:16→21:31)
[2022-01-01] MEDS: DEXTROSE 5%/0.45% SOD CHL 1,000 ML IV SCH (09:36)
[2022-01-01] MEDS: METOPROLOL TARTRATE 25 MG TAB PO SCH ×2 (10:15→18:30)
[2022-01-01] MEDS: MEROPENEM 1 GM in SODIUM CHLORIDE 0.9% 100 ML IV SCH ×2 (18:29→21:28)
[2022-01-01] MEDS: INSULIN GLARGINE 100 UNITS/ML VIAL SQ SCH (21:30)
[2022-01-01] MEDS: ATORVASTATIN 40 MG TAB PO SCH (21:31)
[2022-01-02] VITALS (7 sets, daily range): BP systolic 113–148; BP diastolic 62–80
[2022-01-02] MEDS: DEXTROSE 5%/0.45% SOD CHL 1,000 ML IV SCH (01:05)
[2022-01-02] MEDS: MEROPENEM 1 GM in SODIUM CHLORIDE 0.9% 100 ML IV SCH ×3 (05:43→22:04)
[2022-01-02] MEDS: INSULIN LISPRO 100 UNIT/1 ML 3ML VIAL SQ SCH ×7 (07:30→21:00)
[2022-01-02] MEDS: METOPROLOL TARTRATE 25 MG TAB PO SCH ×2 (09:00→17:23)
[2022-01-02] MEDS: PANTOPRAZOLE SOD 40 MG TABEC PO SCH (13:11)
[2022-01-02] MEDS: ATORVASTATIN 40 MG TAB PO SCH (22:06)
[2022-01-02] MEDS: INSULIN GLARGINE 100 UNITS/ML VIAL SQ SCH (22:06)
[2022-01-03] VITALS: BP 116/66
[2022-01-03 04:00] VITALS: BP 152/83
[2022-01-03 05:00] LABS: BASOPHILS % 0.2 % (0.0-1.0); EOSINOPHILS # (AUTO) 0.1 (0.0-0.4); EOSINOPHILS % 0.8 % (0.0-6.0); HEMATOCRIT 28.6 % (34.2-44.1); HEMOGLOBIN 8.6 g/dL (12.0-16.0); LYMPHOCYTES # (AUTO) 1.8 (1.0-3.2); LYMPHOCYTES % 17.7 % (18.0-39.1); MEAN CORPUSCULAR HEMOGLOBIN 24.3 pg (28-32); MEAN CORPUSCULAR HGB CONC 30.1 g/dL (31-35); MEAN CORPUSCULAR VOLUME 80.8 fL (81-99); MONOCYTES % 10.1 % (4.4-11.3); NEUTROPHILS # (AUTO) 7.1 (2.1-6.9); NEUTROPHILS % 70.7 % (38.7-80.0); PLATELET COUNT 467 x10e3/uL (140-360); RED BLOOD COUNT 3.54 x10e6/uL (3.6-5.1); RED CELL DISTRIBUTION WIDTH 15.9 % (11.7-14.4)
[2022-01-03 05:16] LABS: ANION GAP 14.7 mmol/L (8-16); CALCIUM 8.4 mg/dL (8.4-10.2); CREATININE, SERUM 0.86 mg/dL (0.57-1.11); POTASSIUM 3.7 mmol/L (3.5-5.1)
[2022-01-03] MEDS: MEROPENEM 1 GM in SODIUM CHLORIDE 0.9% 100 ML IV SCH (06:17)
[2022-01-03 08:15] VITALS: BP 156/84
[2022-01-03] MEDS: PANTOPRAZOLE SOD 40 MG TABEC PO SCH (08:29)
[2022-01-03] MEDS: METOPROLOL TARTRATE 25 MG TAB PO SCH (08:30)
[2022-01-03] MEDS: INSULIN LISPRO 100 UNIT/1 ML 3ML VIAL SQ SCH ×4 (08:34→11:30)
[2022-01-03 08:45] VITALS: BP 156/84
[2022-01-03] MEDS ORDERED: CIPRO500 MG PO (10:28)
[2022-01-03] MEDS ORDERED: METFORMIN HCL850 MG PO (10:29)
[2022-01-03] MEDS ORDERED: LIPITOR20 MG PO (10:29)
[2022-01-03] MEDS ORDERED: OMEPRAZOLE40 MG PO (10:30)
[2022-01-03 11:22] VITALS: BP 106/63
== END 2022-01-03 12:08 | disposition home or self-care (01) | DRG 871 ==
LOC: ER 17:39 → ERHOLD 18:49 → ICU 23:07 → MED/SURG2 01-01 14:01
PROVIDERS: ADMIT Internal Medicine; ATTEND Internal Medicine
DX: A41.51 Sepsis due to Escherichia coli [E. coli] (principal); E10.10 Type 1 diabetes mellitus with ketoacidosis without coma; N15.1 Renal and perinephric abscess; N17.9 Acute kidney failure, unspecified; N39.0 Urinary tract infection, site not specified; Z16.12 Extended spectrum beta lactamase (ESBL) resistance; N13.6 Pyonephrosis; E10.42 Type 1 diabetes mellitus with diabetic polyneuropathy; Z79.4 Long term (current) use of insulin; T38.3X6A Underdosing of insulin and oral hypoglycemic [antidiabetic] drugs, initial encounter; I10 Essential (primary) hypertension; E78.5 Hyperlipidemia, unspecified; D64.9 Anemia, unspecified; Z91.120 Patient's intentional underdosing of medication regimen due to financial hardship; Z90.49 Acquired absence of other specified parts of digestive tract; Z88.5 Allergy status to narcotic agent; Z83.3 Family history of diabetes mellitus; Z82.49 Family history of ischemic heart disease and other diseases of the circulatory system
CPT/HCPCS: 0223U; 36415; 74177; 80048; 80053; 81001; 82550; 82553; 82948; 83036; 83605; 83690; 83735; 84439; 84443; 84484; 85025; 87040; 87071; 87186; 87205; 93005; 94799; 96372; 99251; 99285; J0360; J0696; J1815; J1817; J2185; J2405; J3475; J3480; J7030; J7050; Q9967

== ENCOUNTER 2023-10-18 16:31 | Emergency (ER) | payer OTHER ==
[~2023-10-18] VITALS: Ht 160 cm; Wt 52.2 kg
[~2023-10-18 16:31] MED LIST changes: +NITROFURANTOIN100 MG PO; +OMEPRAZOLE40 MG PO
[2023-10-18] MEDS ORDERED: NAPROXEN250 MG PO (17:43)
[2023-10-18 18:07] VITALS: PULSE 78; RESP 16; TEMP 98.8; O2SAT 100
== END 2023-10-18 18:08 | disposition home or self-care (01) ==
LOC: ER 16:34
DX: R50.9 Fever, unspecified (principal); S92.321A Displaced fracture of second metatarsal bone, right foot, initial encounter for closed fracture; S92.331A Displaced fracture of third metatarsal bone, right foot, initial encounter for closed fracture; X58.XXXA Exposure to other specified factors, initial encounter; I12.0 Hypertensive chronic kidney disease with stage 5 chronic kidney disease or end stage renal disease; E11.22 Type 2 diabetes mellitus with diabetic chronic kidney disease; N18.6 End stage renal disease; I50.9 Heart failure, unspecified; G40.909 Epilepsy, unspecified, not intractable, without status epilepticus; D64.9 Anemia, unspecified; F41.9 Anxiety disorder, unspecified; F32.A Depression, unspecified; Z86.73 Personal history of transient ischemic attack (TIA), and cerebral infarction without residual deficits
CPT/HCPCS: 99283